=== PATIENT | male | born 1990 | race Caucasian/White ===

== ENCOUNTER 2018-01-20 13:39 | Emergency (ER) | payer BC ==
[2018-01-20] MEDS ORDERED: NORMAL SALINE 1000 ML 1,000 ML IV ONE (14:14)
--- NOTE | 2018-01-20 14:15 | ER Document Report ---
ED Medical Screen (RME) - General Chief Complaint: Syncope Stated Complaint: SYNCOPAL EPISODE Time Seen by Provider: 01/20/18 14:05 Mode of Arrival: Wheelchair Information source: Patient, Friend Notes: This is a 27-year-old male who presents to the emergency room via EMS after an episode of unresponsiveness. Patient was clearing out debris states he was walking back to the truck when the event occurred. A coworker states that he turned around and saw the patient looking straight and staring and then began to slump over. There was no obvious seizure activity. There was no urinary incontinence. There was no tongue biting. Patient does report having an episode of passing out in high school. Otherwise he has a history of migraines and is only medicine is Aleve. TRAVEL OUTSIDE OF THE [place] IN LAST 30 DAYS: No - Related Data Allergies/Adverse Reactions: No Known Allergies Allergy (Verified 01/20/18 13:40) Past Medical History Neurological Medical History: Reports: Hx Migraine Renal/ Medical History: Denies: Hx Peritoneal Dialysis Physical Exam - Vital signs Vitals: Temp Pulse Resp BP Pulse Ox 97.6 F 88 22 H 142/76 H 100 01/20/18 13:46 01/20/18 13:46 01/20/18 13:46 01/20/18 13:46 01/20/18 13:46 Course - Vital Signs Vital signs: Temp Pulse Resp BP Pulse Ox 97.6 F 88 22 H 142/76 H 100 01/20/18 13:46 01/20/18 13:46 01/20/18 13:46 01/20/18 13:46 01/20/18 13:46
[2018-01-20 14:45] LABS: ABSOLUTE LYMPHOCYTES (AUTO) 1.4 10^3/uL (0.5-4.7); ABSOLUTE MONOCYTES (AUTO) 0.5 10^3/uL (0.1-1.4); ABSOLUTE NEUT (AUTO) 4.9 10^3/uL (1.7-8.2); BASOPHILS % (AUTO) 0.4 % (0-2); EOSINOPHILS % (AUTO) 0.3 % (0-6); HEMATOCRIT 43.8 % (37.9-51.0); LYMPHOCYTES % (AUTO) 20.7 % (13-45); MEAN CORPUSCULAR HEMOGLOBIN 27.8 pg (27.0-33.4); MEAN CORPUSCULAR HGB CONC 34.3 g/dL (32.0-36.0); MEAN CORPUSCULAR VOLUME 81 fl (80-97); MONOCYTES % (AUTO) 6.9 % (3-13); PLATELET COUNT 217 10^3/uL (150-450); RED CELL DISTRIBUTION WIDTH 13.2 % (11.5-14.0); SEGMENTED NEUTROPHILS % (AUTO) 71.7 % (42-78); TOTAL CELLS COUNTED % (AUTO) 100 %; WHITE BLOOD COUNT 6.9 10^3/uL (4.0-10.5)
[2018-01-20 15:06] LABS: ALANINE AMINOTRANSFERASE 28 U/L (21-72); ALBUMIN 4.8 g/dL (3.5-5.0); ALKALINE PHOSPHATASE 56 U/L (38-126); ANION GAP 12 (5-19); ASPARTATE AMINO TRANSFERASE 31 U/L (17-59); BILIRUBIN,DIRECT 0.5 mg/dL (0.0-0.4); BLOOD UREA NITROGEN 23 mg/dL (7-20); CALCIUM 9.7 mg/dL (8.4-10.2); CARBON DIOXIDE 25 mmol/L (22-30); CHLORIDE 102 mmol/L (98-107); GLUCOSE 100 mg/dL (75-110); POTASSIUM 3.8 mmol/L (3.6-5.0); SODIUM 138.5 mmol/L (137-145); TOTAL PROTEIN 8.1 g/dL (6.3-8.2)
--- NOTE | 2018-01-20 16:53 | EKG REPORT ---
SEVERITY:- NORMAL ECG - SINUS RHYTHM : Confirmed by: Mariah Munguia MD 20-Jan-2018 16:52:43
--- NOTE | 2018-01-20 17:16 | ER Document Report ---
ED General - General Chief Complaint: Syncope Stated Complaint: SYNCOPAL EPISODE Time Seen by Provider: 01/20/18 14:05 Mode of Arrival: Wheelchair Notes: Patient is here to be evaluated for some sort of syncope or falling out episode. He has been working in the heat and humidity here yesterday and again this morning. He felt fine this morning. 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 About noon, he developed a headache and says he took about 7 or 8 Motrin at that time. About 1245, patient was walking and noted by bystanders to stop and seem to be confused. He did not have any obvious or apparent seizure activity. Patient says that the next thing he remembers is awakening in the rescue squad on the way here to the emergency department. Headache has been gone ever since he arrived here. Patient says he is suffers from daily migraine headaches, but not as bad as the one he was having here when all of this happened. He did have one severe headache similar to this 1 about 10 years ago and he also passed out with that headache. 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 His only medication for these headaches is [id number] Motrin or Advil. TRAVEL OUTSIDE OF THE [place] IN LAST 30 DAYS: No - Related Data Allergies/Adverse Reactions: No Known Allergies Allergy (Verified 01/20/18 13:40) Past Medical History - General Information source: Patient, Friend - Social History Smoking Status: Never Smoker Family History: Reviewed & Not Pertinent Patient has suicidal ideation: No Patient has homicidal ideation: No - Past Medical History Cardiac Medical History: Denies: Hx Hypertension Neurological Medical History: Reports: Hx Migraine. Denies: Hx Cerebrovascular Accident, Hx Seizures Surgical Hx: Negative Review of Systems - Review of Systems Notes: REVIEW OF SYSTEMS: CONSTITUTIONAL : Denies fever. EENT: Denies eye, ear, nose or mouth or throat pain or other symptoms. CARDIOVASCULAR: Denies chest pain. RESPIRATORY: Denies cough, chest congestion, or shortness of breath. GASTROINTESTINAL: Denies abdominal pain or nausea, vomiting, or diarrhea. GENITOURINARY: Denies difficulty or painful urinating, urinary frequency, blood in urine. MUSCULOSKELETAL: Denies back or neck pain. Denies joint pain or swelling. SKIN: Denies rash or skin lesions. NEUROLOGICAL: See HPI.. Headache--see HPI. Denies sensory loss or motor deficits. ALL OTHER SYSTEMS REVIEWED AND NEGATIVE. Physical Exam - Vital signs Vitals: Temp Pulse Resp BP Pulse Ox 97.6 F 88 22 H 142/76 H 100 01/20/18 13:46 01/20/18 13:46 01/20/18 13:46 01/20/18 13:46 01/20/18 13:46 Interpretation: Normal - Notes Notes: PHYSICAL EXAMINATION: GENERAL: Well-appearing, in no acute distress. Vital signs are all normal. Patient appears very well and healthy. HEAD: Atraumatic, normocephalic. EYES: Pupils equal round and reactive to light, extraocular movements intact. ENT: oropharynx clear without exudates. Moist mucous membranes. NECK: Normal range of motion, supple. LUNGS: Breath sounds clear and equal bilaterally. HEART: Regular rate and rhythm without murmurs. ABDOMEN: Soft, nontender. No guarding or rebound. No masses. BACK: No tenderness throughout entire back. EXTREMITIES: Normal range of motion without pain. NEUROLOGICAL: Normal speech, normal gait. Normal sensory, motor, and reflex exams. Awake, alert, and oriented x3. Cranial nerves normal. PSYCH: Normal mood, normal affect. SKIN: Warm, dry, no rashes. Course - Re-evaluation Re-evalutation: 01/20/18 18:27 Patient remained asymptomatic throughout his stay in the department. Denies any headache. Has not had any other feelings of weakness or dizziness. He did complain of pain when he got here in his right upper arm and in both of his legs. 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 I wonder if these could be a cramps, i.e. heat cramps. Patient's BUN and creatinine were slightly elevated and he has no history of any renal insufficiency. This would suggest fluid deficit. I recommended a CT scan of the patient's head and brain, but he declined. He is with a couple of other coworkers here, all of them awaiting this patient's discharge to drive back to their homes in [facility], about 4 hours away. Patient is insistent that he does not want to have any further tests done as he feels fine and has felt fine since he has been here. Explained to the patient that he could have had an intracranial bleed or something else that might be detected by CT scan. However, if not detected, patient might have serious harm, and intracranial hemorrhage, paralysis, even . Patient still was very insistent that he did not want anything else done here at this time and that he would follow-up with a doctor back home. He was provided with all of his paperwork and results to take with him. He is discharged stable. - Vital Signs Vital signs: Temp Pulse Resp BP Pulse Ox 98.4 F 75 16 118/70 99 01/20/18 17:37 01/20/18 17:37 01/20/18 17:37 01/20/18 17:37 01/20/18 17:37 - Laboratory Result Diagrams: 01/20/18 14:27 01/20/18 14:27 Laboratory results interpreted by me: 01/20/18 14:27 BUN 23 H Creatinine 1.41 H Est GFR (Non-Af Amer) 59 L Direct Bilirubin 0.5 H Discharge - Discharge Clinical Impression: Syncope, Headache, Renal insufficiency, mild Condition: Good Disposition: HOME, SELF-CARE Additional Instructions: SYNCOPAL EPISODE: Syncope (fainting or near-fainting) can occur from many different health problems. Or it can be a simple fainting spell requiring no treatment. It is safe for you to go home, but further evaluation will likely be necessary. Your work-up may include tests for internal bleeding, heart disease, medication problems, or near-strokes. Tests are not always required, however, depending on the nature of your problem. The warning signs of an impending faint include: dizziness, lightheadedness , nausea, hot flashes, tingling, and weakness. If this happens, lay down and put your feet up, then wait until all of these symptoms have passed before standing up again. If these episodes become recurrent, or if you develop chest pain, heart palpitations, mental confusion, blurred vision, or headache, then you should call the physician, or go to the emergency room. NORMAL EXAM AND WORKUP: At this time, your examination and workup show no significant abnormality. No significant abnormal physical findings were noted. All laboratory, EKG, and imaging (x-ray, CT scans, ultrasound) studies that were ordered show no significant abnormality. Although your examination and all studies that were ordered showed no significant abnormal finding, there are no examinations and no studies that are 100% accurate. There is always the possibility that some abnormality could exist and not be detected with physical examination or within the limits and capabilities of laboratory and other studies. You should return or follow up as you were instructed on your visit today for further evaluation if your symptoms do not resolve. Your lab studies showed some very mild renal efficiency, usually seen when people are behind on fluid intake or have expelled a larger amount of fluid from their body than normal. This is possibly due to working excessively in the outside heat and humidity. I encourage you to drink plenty of fluids. Kidney Function Abnormality Your evaluation has shown an abnormality of your kidney function. An abnormal kidney function test can be caused by dehydration, acute kidney damage , blood vessel disease (such as with diabetes or chronic high blood pressure), or just old age. If the abnormality is caused by an acute disease, it may reverse completely. Have a repeat test. If it's normal, don't worry about your kidneys. If you have a chronic kidney problem, you must be careful with medicines and medical tests. Be sure any doctor who prescribes medicine or orders tests knows that your kidney tests have been abnormal. Some medicines must have the dose reduced, other medicines must be avoided. If the doctor has recommended further workup, be sure to follow up as instructed. Call us if you have new flank pain, vomiting, confusion, or if you' re unable to urinate. I have recommended that we get a CT scan of your head and brain, but you have indicated he would wish to wait and return to your home near [facility] this evening. You understand that I am limited in my diagnostic abilities if I am not able to do all the testing that I recommend. However, your workup could indicate that you are working too much in the heat and humidity. Drink plenty of fluids and rest and follow-up with your primary care doctor. At any time, if you have another episode of apparent passing out or the severe headache that she had, follow-up with an emergency department right away. FOLLOW-UP CARE: If you have been referred to a physician for follow-up care, call the physician s office for an appointment as you were instructed or within the next two days. If you experience worsening or a significant change in your symptoms, notify the physician immediately or return to the Emergency Department at any time for re-evaluation.
[2018-01-20 17:36] VITALS: BP 118/70
== END 2018-01-20 17:41 | disposition home or self-care (01) ==
LOC: ER 13:39
DX: R55 Syncope and collapse (principal); G43.909 Migraine, unspecified, not intractable, without status migrainosus; N28.9 Disorder of kidney and ureter, unspecified; M79.621 Pain in right upper arm; M79.604 Pain in right leg; M79.605 Pain in left leg
CPT/HCPCS: 36415; 80053; 83735; 85025; 93005; 93010; 96360; 99284